=== PATIENT | female | born 1935 | race Caucasian/White ===

== ENCOUNTER → 2018-03-17 10:25 | Outpatient (CLI) | payer MEDICARE, MEDICAID, SELFPAY ==
[2018-03-17 12:49] LABS: Alanine Aminotransferase 26 IU/L (9-52); Albumin Globulin Ratio 1.2 (1.0-2.8); Alkaline Phosphatase 79 U/L (38-126); Aspartate Aminotransferase 31 IU/L (14-36); BUN Creatinine Ratio 24.3 (6-22); Bilirubin Total 0.9 mg/dL (0.2-1.3); Blood Urea Nitrogen 17 mg/dL (7-17); Calcium 9.6 mg/dL (8.4-10.2); Carbon Dioxide 30 mmol/L (22-32); Chloride 101 mmol/L (98-107); Cholesterol 185 mg/dL (140-199); Estimated Glomerular Filt Rate > 60.0 mL/min (>60); Globulin 3.4 g/dL (1.7-4.1); Glucose 81 mg/dL (80-110); HDL Cholesterol 41 mg/dL (40-60); HEMOLYSIS < 15 (0-50); LDL Cholesterol Calculated 112 mg/dL (<100); Potassium 3.9 mmol/L (3.4-5.1); Sodium 143 mmol/L (137-145); Total Protein 7.4 g/dL (6.3-8.2); Triglycerides 161 mg/dL (35-150)
[2018-03-17 13:04] LABS: Vitamin D 25 Hydroxy (D3) 60.1 ng/mL (30.0-100.0)
== END ==
PROVIDERS: PCP Family Medicine; Visit Provider Student in an Organized Health Care Education/Training Program
DX: E55.9 Vitamin D deficiency, unspecified (principal); E78.5 Hyperlipidemia, unspecified; I10 Essential (primary) hypertension; Z79.899 Other long term (current) drug therapy
CPT/HCPCS: 36415; 80053; 80061; 82306

== ENCOUNTER → 2018-11-03 08:11 | Outpatient (CLI) | payer MEDICARE, SELFPAY ==
[2018-11-03 09:05] LABS: Hematocrit 42.3 % (36-46); Mean Corpuscular HGB Conc 33.2 % (30-36); Mean Corpuscular Hemoglobin 29.1 PG (26-34); Mean Corpuscular Volume 87.7 fL (80-100); Platelet Count 204 X10^3/uL (150-400); Red Blood Cell Count 4.82 X10^6/uL (4.0-5.2); Red Cell Distribution Width 13.1 % (11.6-14.8); White Blood Cell Count 8.3 X10^3/uL (4.5-11.0)
[2018-11-03 09:16] LABS: BUN Creatinine Ratio 35.7 (6-22); Blood Urea Nitrogen 25 mg/dL (7-17); Calcium 9.5 mg/dL (8.4-10.2); Carbon Dioxide 28 mmol/L (22-32); Chloride 102 mmol/L (98-107); Estimated Glomerular Filt Rate > 60.0 mL/min (>60); Glucose 82 mg/dL (80-110); HEMOLYSIS < 15 (0-50); Sodium 139 mmol/L (137-145)
== END ==
PROVIDERS: PCP Student in an Organized Health Care Education/Training Program; Visit Provider Student in an Organized Health Care Education/Training Program
DX: E78.5 Hyperlipidemia, unspecified (principal); I10 Essential (primary) hypertension
CPT/HCPCS: 36415; 80048; 85027

== ENCOUNTER → 2018-11-12 14:38 | Outpatient (CLI) | payer MEDICARE, SELFPAY ==
--- NOTE | 2018-11-12 14:42 | DI.MG.S_ITS ---
BILATERAL DIGITAL SCREENING MAMMOGRAM 3D/2D WITH CAD: 11/12/2018 CLINICAL: Routine screening. Comparison is made to exams dated: 08/08/2015 mammogram, 09/10/2016 mammogram, and 09/30/2017 mammogram - [facility]. The tissue of both breasts is heterogeneously dense. This may lower the sensitivity of mammography. Current study was also evaluated with a Computer Aided Detection (CAD) system. There are benign vascular calcifications in both breasts. There are mole markers on both breasts. No significant masses, calcifications, or other findings are seen in either breast. There has been no significant interval change. IMPRESSION: There is no mammographic evidence of malignancy. A 1 year screening mammogram is recommended. This exam was interpreted at Station ID: [id number]. NOTE: For mammograms, a report in lay terms will be sent to the patient. Approximately 15% of breast malignancies will not be visualized mammographically. In the management of a palpable breast mass, a negative mammogram must not discourage biopsy of a clinically suspicious lesion. Electronically Signed By: Alli cook/kelsey:11/12/2018 18:16:41 letter sent: Normal Exam ACR BI-RADS Category 2: Benign Finding(s) 3342F
== END ==
PROVIDERS: PCP Student in an Organized Health Care Education/Training Program; Visit Provider Student in an Organized Health Care Education/Training Program
DX: Z12.31 Encounter for screening mammogram for malignant neoplasm of breast (principal)
CPT/HCPCS: 77063; 77067

== ENCOUNTER 2019-07-09 19:47 | Emergency (ER) | payer MEDICARE, SELFPAY ==
--- NOTE | 2019-07-09 19:55 | DI.RAD.S_ITS ---
PROCEDURE: XR CHEST 2V INDICATIONS: chest pain on palpation, after reaching for object TECHNIQUE: 2 views of the chest were acquired. COMPARISON: None. FINDINGS: Surgical changes and devices: None. Lungs and pleura: Lungs are clear. There is hyperinflation of the lungs with flattening of the hemidiaphragms compatible with COPD. No pleural effusions or pneumothorax. Mediastinum: Mediastinal contours are normal. Heart size is normal. Bones and chest wall: There is suggestion of a minimally depressed fracture of the sternum of indeterminate acuity. Soft tissues appear unremarkable. IMPRESSION: 1. Findings compatible with COPD. 2. No acute consolidation. 3. Suspected minimally depressed fracture of the sternum of indeterminate acuity. Recommend correlation with clinical exam. Dictated by: Magnus Simmons M.D. on 07/09/2019 at 20:14 Approved by: Magnus Simmons M.D. on 07/09/2019 at 20:16
[2019-07-09 20:22] VITALS: PULSE 72; RESP 13; O2SAT 100
[2019-07-09 20:30] VITALS: PULSE 66; RESP 12; O2SAT 98
--- NOTE | 2019-07-09 20:31 | ED_ITS ---
HPI - Chest Pain General Chief Complaint: Chest Pain Stated Complaint: SOB Time Seen by Provider: 07/09/19 19:50 Source: patient Mode of arrival: Wheelchair Limitations: no limitations History of Present Illness HPI narrative: 84-year-old female nonsmoker with history of hypertension presents by cab with a chief complaint of a sudden sharp and stabbing anterior chest pain that happened when she was leaning over felt a pop earlier tonight. She states it hurts when she moves and when she takes a big deep breath. She denies any dizziness, weakness or lightheadedness. She denies any traumatic injury. She denies any history of the same. She denies taking any medications at home to help MD complaint: chest pain Onset (ago): hour(s) Duration: constant Onset: other Pain location: substernal Severity: moderate Quality: sharp Pain radiation: none Relieving factors: rest Exacerbating factors: inspiration, palpation and movement Treatments prior to arrival chest pain: none Related Data On Oral Contraceptives: No Previous Rx's Medication Instructions Recorded hydrochlorothiazide 25 mg tablet 25 mg PO DAILY #90 tab 01/05/19 lisinopril 10 mg tablet 10 mg PO DAILY #90 tab 01/05/19 simvastatin 10 mg tablet 10 mg PO BEDTIME #90 tab 01/05/19 tramadol 50 mg tablet 50 mg PO Q6H PRN #30 tab 03/01/19 hydrocodone-acetaminophen 1 tab PO Q4-6H PRN #10 tab 07/09/19 lidocaine [Lidoderm] 1 patch TOP DAILY #15 each 07/09/19 Allergies Allergy/AdvReac Type Severity Reaction Status Date / Time No Known Drug Allergies Allergy Verified 11/10/18 09:57 Review of Systems Constitutional Constitutional: Denies chills, Denies fatigue, Denies fever(s), Denies frequent falls, Denies lethargy and Denies weakness Eyes Eyes: Denies change in vision, Denies eye discharge, Denies irritation and Denies loss of vision ENT Ears, Nose, Mouth, and Throat: Denies change in voice, Denies dizziness, Denies neck pain, Denies sore throat and Denies throat swelling Cardiovascular Cardiovascular: Denies chest pain, Reports chest pain at rest, Denies irregular heart rhythm, Denies lightheadedness, Denies palpitations, Denies dyspnea, Denies dyspnea on exertion and Denies orthopnea Respiratory Respiratory: Denies cough, Reports pain on inspiration, Reports pain with cough, Denies dyspnea, Denies dyspnea on exertion and Denies wheezing Gastrointestinal Gastrointestinal: Denies abdominal pain, Denies change in bowel habits, Denies diarrhea, Denies nausea and Denies vomiting Genitourinary Genitourinary: Denies hematuria, Denies flank pain, Denies urinary incontinence and Denies urinary urgency Musculoskeletal Musculoskeletal: Denies back pain, Denies muscle weakness, Denies neck pain, Denies numbness and Denies tingling Integumentary/Breasts Skin/Breast: Denies pruritus, Denies erythema, Denies rash and Denies wounds Neurologic Neurologic: Denies behavioral changes, Denies confusion, Denies dizziness, Denies frequent falls, Denies loss of vision, Denies numbness, Denies tingling and Denies weakness Psychiatric Psychiatric: Denies anxiety, Denies behavioral changes, Denies confusion, Denies depression, Denies homicidal ideation and Denies suicidal ideation Endocrine Endocrine: Denies fatigue, Denies flushing and Denies palpitations Hematologic/Lymphatic Hematologic/Lymphatic: Denies easy bruising Allergic/Immunologic Allergic/Immunologic: Denies urticaria, Denies throat swelling and Denies wheezing Patient History Medical History Chickenpox (Resolved) Essential hypertension (Chronic 2009) Hearing loss (Chronic 2015) Hyperlipidemia (Chronic) Measles (Resolved) Mumps (Resolved) Prolapse of female pelvic organs (Resolved) Shingles (Chronic) Surgical History No history of previous surgery (Chronic) Family History Father Myocardial infarction Mother No problems noted. Social History Smoking Status: Never smoker alcohol intake: never substance use type: does not use Smoking Status: Never smoker Substance Use Type: does not use Exam Narrative Exam Narrative: GENERAL: [84] year old patient appears stated age. Thin, very hard of hearing, episodes of very intense pain precipitated by deep breath or motion HEAD: Atraumatic. Normocephalic. EYES: Pupils equal round and reactive. Extraocular motions intact. No scleral icterus. No injection or drainage. ENT: Nose without bleeding, purulent drainage. Throat without erythema, tonsillar hypertrophy or exudate. Airway patent. NECK: Trachea midline. Non tender CARDIOVASCULAR: Regular rate and rhythm without murmurs, gallops, or rubs. Anterior chest pain with palpation RESPIRATORY: Clear to auscultation. Breath sounds equal bilaterally. No wheezes, rales, or rhonchi. GASTROINTESTINAL: Abdomen soft, non-tender, nondistended. EXTREMITIES: No edema or joint tenderness. BACK: Nontender without deformity or crepitance. No flank tenderness. NEURO: AOx3. SKIN: No rash or erythema of visible areas Initial Vital Signs Initial Vital Signs: Vital Signs Pulse Rate 72 07/09/19 20:22 Respiratory Rate 13 07/09/19 20:22 Pulse Oximetry 100 07/09/19 20:22 Course Orders Ordered: ED Orders 07/09/19 19:55 XR chest 2V Stat 07/09/19 20:31 CT chest wo con Stat Discontinued Medications Hydrocodone Bitart/Acetaminophen (Vicodin 5/325 Prepack) 1 bottle MISC SEEINSTR ONE Stop: 07/09/19 22:07 Last Admin: 07/09/19 22:19 Dose: 1 bottle Documented by: MIRANDA Ibuprofen (Advil) 400 mg PO NOW ONE Stop: 07/09/19 22:41 Last Admin: 07/09/19 22:43 Dose: 400 mg Documented by: MIRANDA Lidocaine (Lidoderm) 1 each TOP NOW ONE Stop: 07/09/19 22:41 Last Admin: 07/09/19 22:44 Dose: 1 each Documented by: MIRANDA Vital Signs Vital signs: Vital Signs - 8 hr 07/09/19 20:22 07/09/19 20:30 07/09/19 21:00 Pulse Rate 72 66 66 Respiratory Rate 13 12 13 Blood Pressure [Right Arm] Pulse Oximetry 100 98 98 07/09/19 21:52 Pulse Rate 68 Respiratory Rate 18 Blood Pressure [Right Arm] 145/66 H Pulse Oximetry 97 MDM - Chest Pain Imaging Data Chest x-ray: Radiologist's Impression: [address] [address] XRay Report Signed Patient: Manisha Acuña MMR#: [id number] : 7Acct:[id number] Age/Sex: 84 / FDate of Service: 07/09/19 Loc: ED Accession Number: [id number] Procedure: XR chest 2V Ordering Provider: Calixto Ly D.O. PROCEDURE: XR CHEST 2V INDICATIONS: chest pain on palpation, after reaching for object TECHNIQUE: 2 views of the chest were acquired. COMPARISON: None. FINDINGS: Surgical changes and devices: None. Lungs and pleura: Lungs are clear. There is hyperinflation of the lungs with flattening of the hemidiaphragms compatible with COPD. No pleural effusions or pneumothorax. Mediastinum: Mediastinal contours are normal. Heart size is normal. Bones and chest wall: There is suggestion of a minimally depressed fracture of the sternum of indeterminate acuity. Soft tissues appear unremarkable. IMPRESSION: 1. Findings compatible with COPD. 2. No acute consolidation. 3. Suspected minimally depressed fracture of the sternum of indeterminate acuity. Recommend correlation with clinical exam. Dictated by: Magnus Simmons M.D. on 07/09/2019 at 20:14 Approved by: Magnus Simmons M.D. on 07/09/2019 at 20:16 CT scan - chest: Radiologist's Impression: Chart Viewer Diagnostics DATE TYPE STATUS AUTHOR Hx 07/09/19 20:31 Magnus Simmons 07/09/19 19:55 Magnus Simmons 11/12/18 14:42 Alli Green 09/30/17 01:00 Mammogram Manisha Acuña 84, F0 1935 [facility], [facility] ED 61.689kg Chest Pain Search Chart No Data to Display ONSET 200907/09/19 21:52 Lizeth Acuñaanor Victor Manuel 84 F 1935 [place] [address] CT Scan Report Signed Patient: Manisha Acuña [facility]#: [id number] : 1935cct:[id number] Age/Sex: 84 / FDate of Service: 07/09/19 Loc: ED Accession Number: [id number] Procedure: CT chest wo con Ordering Provider: Calixto Ly D.O. PROCEDURE: CT CHEST WO CON INDICATIONS: severe anterior chest pain, possible sternal fx on CXR TECHNIQUE: Noncontrast 5 mm thick sections acquired from the pulmonary apices to the posterior costophrenic angles. 1 mm lung window, 5 mm thick coronal and sagittal and 7 mm axial MIP reformats were then acquired. For radiation dose reduction, the following was used: automated exposure control, adjustment of mA and/or kV according to patient size. COMPARISON: [facility], CR, XR CHEST 2V, 07/09/2019, 19:52. FINDINGS: Image quality: Excellent. Lungs and pleura: There is mild dependent atelectasis bilaterally. Mild scarring also demonstrated with a basilar predominance. No acute consolidation. No pleural effusions or pneumothorax. Central and peripheral airways are patent and normal in caliber. Mediastinum: Heart size is normal. No pericardial effusion. No mediastinal adenopathy by size criteria. Thoracic aorta and central pulmonary arteries are normal in size. No retrosternal hematoma. Esophagus is normal in caliber. No hiatal hernia. Bones and chest wall: Visualized osseous structures appear osteopenic. There is a mild focal depression of the body of the sternum involving the anterior cortex. The posterior cortex appears intact. There is minimal anterior wedging of the T8 vertebral body. Minimal super endplate scalloping of the T3 vertebral body also noted. No displaced rib fractures. No axillary or supraclavicular adenopathy by size criteria. Abdomen: Visualized upper abdominal solid organs and bowel loops appear normal in the absence of contrast. IMPRESSION: 1. Mild focal depression of the anterior cortex in the body of the sternum. Findings suggestive of a small impaction or buckle fracture. Recommend correlation with clinical history and exam. 2. Posterior cortex of the sternum appears intact. No retrosternal hematomas. Dictated by: Magnus Simmons M.D. on 07/09/2019 at 21:09 Approved by: Magnus Simmons M.D. on 07/09/2019 at 21:16 Discharge Plan Departure Patient Disposition: Home Clinical Impression: Sternal fracture Qualifiers: Encounter type: initial encounter Sternal location: unspecified Fracture type: closed Qualified Code(s): S22.20XA - Unspecified fracture of sternum, initial encounter for closed fracture Discharge Date/Time: 07/09/19 22:53 Activity Restrictions/Additional Instructions: *You have been diagnosed with [nondisplaced sternal fracture] *What to do: *Take medications as directed: Pain meds sent to [facility] at your request *Follow up with your primary care provider in 2-3 days, call for an appointment. Let them know you were seen in the Emergency Department and that we ask that you be seen in follow up *Return to ER if you should have any new, worsening or concerning symptoms You have been prescribed narcotic medications. While on these medications you cannot drive or operate heavy machinery. Additionally you cannot sign legal documents or perform any duties such as this. Many people get constipated on narcotic medications so it would be advisable to discuss stool softeners with the pharmacist when you pick up worker your prescription. Please understand that we cannot provide further refills of narcotics or controlled substances through the ED and your pain management will need to be through your Primary Care Provider Prescriptions: New hydrocodone-acetaminophen 5-325 mg tablet 1 tab PO Q4-6H PRN (Reason: pain) Qty: 10 RF: 0 lidocaine [Lidoderm] 5 % adhesive patch,medicated 1 patch TOP DAILY Qty: 15 RF: 0 No Action hydrochlorothiazide 25 mg tablet 25 mg PO DAILY Qty: 90 RF: 3 lisinopril 10 mg tablet 10 mg PO DAILY Qty: 90 RF: 3 simvastatin 10 mg tablet 10 mg PO BEDTIME Qty: 90 RF: 3 tramadol 50 mg tablet 50 mg PO Q6H PRN (Reason: pain) Qty: 30 RF: 1 Referrals: Han Machado MD [Primary Care Provider] -
[2019-07-09 21:00] VITALS: PULSE 66; RESP 13; O2SAT 98
[2019-07-09 21:52] VITALS: BP 145/66; PULSE 68; RESP 18; O2SAT 97
[2019-07-09] MEDS: HYDROCODONE/ACET 5/325 PREPACK 1 BOTTLE MISC (22:19)
[2019-07-09] MEDS: IBUPROFEN 400 MG TABLET PO (22:43)
[2019-07-09] MEDS: LIDOCAINE PATCH 1 EACH ADH..PATCH TOP (22:44)
--- NOTE | 2019-07-09 22:52 | PC.NURSE ---
Pt given an incentive spirometer, taught to splint to cough and take deep breaths. Pt practiced and demonstrated.
== END 2019-07-09 22:53 | disposition home or self-care (01) ==
PROVIDERS: Emergency Provider Emergency Medicine; PCP Student in an Organized Health Care Education/Training Program
DX: S22.20XA Unspecified fracture of sternum, initial encounter for closed fracture (principal); R07.9 Chest pain, unspecified
CPT/HCPCS: 71046; 71250; 93005; 99284

== ENCOUNTER → 2020-07-27 09:41 | Outpatient (CLI) | payer MEDICARE, SELFPAY ==
[2020-07-27 11:19] LABS: BUN Creatinine Ratio 29.4 (6-22); Blood Urea Nitrogen 25 mg/dL (7-17); Calcium 10.2 mg/dL (8.4-10.2); Carbon Dioxide 32 mmol/L (22-32); Chloride 101 mmol/L (98-107); Estimated Glomerular Filt Rate > 60.0 mL/min (>60); Glucose 96 mg/dL (80-110); HEMOLYSIS < 15 (0-50); Potassium 4.9 mmol/L (3.4-5.1); Sodium 139 mmol/L (137-145)
== END ==
PROVIDERS: PCP Student in an Organized Health Care Education/Training Program; Referring Provider Student in an Organized Health Care Education/Training Program; Visit Provider Student in an Organized Health Care Education/Training Program
DX: I10 Essential (primary) hypertension (principal)
CPT/HCPCS: 36415; 80048

== ENCOUNTER → 2020-08-18 12:21 | Outpatient (CLI) | payer MEDICARE, SELFPAY ==
--- NOTE | 2020-08-18 12:24 | DI.MG.S_ITS ---
BILATERAL DIGITAL SCREENING MAMMOGRAM 3D/2D WITH CAD: 08/18/2020 CLINICAL: Routine screening. Comparison is made to exams dated: 11/12/2018 mammogram - [facility], 09/30/2017 mammogram, and 09/10/2016 mammogram - [facility]. The tissue of both breasts is heterogeneously dense. This may lower the sensitivity of mammography. Current study was also evaluated with a Computer Aided Detection (CAD) system. There are benign vascular calcifications in both breasts. No significant masses, calcifications, or other findings are seen in either breast. There has been no significant interval change. IMPRESSION: BENIGN There is no mammographic evidence of malignancy. A 1 year screening mammogram is recommended. This exam was interpreted at Station ID: [id number]. NOTE: For mammograms, a report in lay terms will be sent to the patient. Approximately 15% of breast malignancies will not be visualized mammographically. In the management of a palpable breast mass, a negative mammogram must not discourage biopsy of a clinically suspicious lesion. Electronically Signed By: Jeferson ch/kelsey:08/18/2020 13:06:55 letter sent: Normal Exam ACR BI-RADS Category 2: Benign Finding(s) 3342F
--- NOTE | 2020-08-18 12:24 | DI.RAD.S_ITS ---
PROCEDURE: XR DEXA AXIAL SKELETON INDICATIONS: Osteoporosis screening COMPARISON: None. FINDINGS: This blank DEXA report has been sent in error by the PACS system. The correct and complete report will be forthcoming in 1-2 days. Thank you for your patience and understanding. Dictated by: Ximena Luo MD, PhD on 08/18/2020 at 17:26 Approved by: Ximena Luo MD, PhD on 08/18/2020 at 17:28
== END ==
PROVIDERS: PCP Student in an Organized Health Care Education/Training Program; Referring Provider Student in an Organized Health Care Education/Training Program; Visit Provider Student in an Organized Health Care Education/Training Program
DX: Z12.31 Encounter for screening mammogram for malignant neoplasm of breast; Z13.820 Encounter for screening for osteoporosis; M81.0 Age-related osteoporosis without current pathological fracture; Z78.0 Asymptomatic menopausal state
CPT/HCPCS: 77063; 77067; 77080